=== PATIENT | female | born 1950 | race Caucasian/White ===

== ENCOUNTER 2017-04-18 13:08 | Day surgery (SDC) | payer OTHER ==
[2017-04-18] MEDS ORDERED: PROPOFOL 200 MG/20 ML VIAL As Ordered ×2 (13:23→17:58)
[2017-04-18] MEDS: LR 1,000 ML IV (14:30)
[2017-04-18] MEDS: PERCOCET 5MG/325MG TAB PO (15:00)
[2017-04-18] MEDS ORDERED: CEFAZOLIN SOD 1 GM in APPROPRIATE DILUENT 1 EA IV (15:00)
[2017-04-18] MEDS ORDERED: ceFAZolin 1GM INJ (J0690 PER 500MG) As Ordered (15:10)
[2017-04-18] MEDS ORDERED: LIDOCAINE 2% INJ 100 MG/5 ML SDV (FOR ANES.) As Ordered (17:58)
[2017-04-18] MEDS ORDERED: fentaNYL 250 MCG/5 ML INJECTION (J3010) As Ordered (17:58)
[2017-04-18] MEDS ORDERED: MIDAZOLAM INJ 2 MG/2 ML VIAL (J2250) As Ordered (17:58)
[2017-04-18] MEDS ORDERED: PHENYLephrine HCL 500 MCG/5 ML (100MCG/ML) SYRINGE (J2370) As Ordered (18:36)
[2017-04-18] MEDS: LIDOCAINE W/EPINEPHRINE 1% 20ML VIAL As Ordered (18:40)
[2017-04-18] MEDS: BUPIVACAINE HCL 0.25% 30 ML VIAL As Ordered (18:40)
[2017-04-18] MEDS ORDERED: ONDANSETRON 4MG/2ML VIAL (J2405) As Ordered ×2 (19:00→20:24)
[2017-04-18] MEDS ORDERED: ePHEDrine INJ 50 MG/ML VIAL As Ordered (19:01)
[2017-04-18] MEDS ORDERED: fentaNYL 100 MCG/2 ML INJECTION (J3010) As Ordered (20:10)
[2017-04-18] MEDS: fentaNYL 100 MCG/2 ML INJECTION (J3010) IV ×4 (20:16→20:40)
[2017-04-18] MEDS ORDERED: NORCO, ANEXSIA 5/325MG TABLET (HYDROcodone/ACETAMINOPHEN) As Ordered (20:23)
[2017-04-18] MEDS: NORCO, ANEXSIA 5/325MG TABLET (HYDROcodone/ACETAMINOPHEN) PO ×2 (20:30→21:16)
[2017-04-18] MEDS ORDERED: LR 1,000 ML IV (20:30)
[2017-04-18] MEDS ORDERED: PROMETHAZINE INJ 25 MG/ML VIAL (J2550) IV (20:30)
[2017-04-18] MEDS: ONDANSETRON 4MG/2ML VIAL (J2405) IV (20:45)
[2017-04-18] MEDS ORDERED: PERCOCET 5MG/325MG TAB PO (21:30)
[2017-04-18] MEDS: CEFAZOLIN SOD 1 GM in APPROPRIATE DILUENT 1 EA IV (22:52)
[2017-04-18] MEDS: LISINOPRIL 10 MG TAB PO (22:53)
[2017-04-18] MEDS: LETROZOLE 2.5 MG TAB PO (22:53)
[2017-04-18] MEDS: D5W/LR 1,000 ML IV (22:54)
[2017-04-19] MEDS: PERCOCET 5MG/325MG TAB PO ×2 (01:07→05:57)
[2017-04-19] MEDS ORDERED: ONDANSETRON 4 MG TAB (S0181) As Ordered (10:48)
[2017-04-19] MEDS: ONDANSETRON 4 MG TAB (S0181) PO ×2 (10:54→14:01)
== END 2017-04-19 14:25 | disposition home or self-care (01) ==
LOC: M SDC 13:08 → M PED 21:38
DX: S52.501A Unspecified fracture of the lower end of right radius, initial encounter for closed fracture (principal); S82.64XA Nondisplaced fracture of lateral malleolus of right fibula, initial encounter for closed fracture; W00.0XXA Fall on same level due to ice and snow, initial encounter; Y93.89 Activity, other specified; Y92.89 Other specified places as the place of occurrence of the external cause; Y99.8 Other external cause status; I10 Essential (primary) hypertension; E78.5 Hyperlipidemia, unspecified; Z79.899 Other long term (current) drug therapy; Z85.3 Personal history of malignant neoplasm of breast; Z98.51 Tubal ligation status; Z92.21 Personal history of antineoplastic chemotherapy; Z92.3 Personal history of irradiation
CPT/HCPCS: 25608